=== PATIENT | male | born 1985 | race Caucasian/White ===

== ENCOUNTER 2020-05-14 18:13 | Emergency (ER) | payer MEDICAID, SELFPAY ==
[2020-05-14 18:38] VITALS: BP 120/75; PULSE 89; RESP 16; TEMP 37.2; O2SAT 97
[2020-05-14 20:23] VITALS: RESP 20; O2SAT 99; BMI 42.4
--- NOTE | 2020-05-14 20:23 | ED.SOB ---
HPI - SOB/Dyspnea General Chief Complaint: Upper Respiratory Symptoms Stated Complaint: covid symptoms Time Seen by Provider: 05/14/20 20:23 Source: patient Mode of arrival: ambulatory Limitations: no limitations History of Present Illness HPI Narrative: patient is asthmatic with COVID positive last week roughly day 10, now with increasing shortness of breath MD elicited complaint: shortness of breath and cough Pertinent past history: asthma Onset (ago): week(s) Timing: constant Severity: moderate Exacerbating factors: coughing Related Data Previous Rx's Medication Instructions Recorded azithromycin 250 mg PO DAILY 4 Days #4 tab 05/14/20 Allergies Allergy/AdvReac Type Severity Reaction Status Date / Time shellfish derived Allergy Severe ANAPHYLAXIS Unverified 01/09/20 18:12 ibuprofen [IBUPROFEN] Allergy Intermediate ANGIOEDEA, Unverified 01/09/20 18:12 HIVES [employer] Allergy Intermediate SWELLING Uncoded 01/09/20 18:12 DUST MITES Allergy Intermediate HIVES Uncoded 01/09/20 18:12 Shellfish Allergy Unknown anaphylaxis Uncoded 12/10/19 00:00 Review of Systems Constitutional: Constitutional: Reports no additional constitutional complaints Eyes: Eyes: Reports no additional eye complaints ENT: Denies dizziness Cardiovascular: Cardiovascular: Reports no additional cardiovascular complaints Respiratory: Respiratory: Reports as per HPI Gastrointestinal: Gastrointestinal: Reports no additional gastrointestinal complaints Musculoskeletal: Musculoskeletal: Reports no additional musculoskeletal complaints Integumentary/Breasts: Skin/Breast: Denies rash Neurologic: Reports system reviewed and no additional complaints, except as documented, Denies dizziness and Denies Sensory deficit (Neuro) Psychiatric: Psychiatric: Denies anxiety [facility] Social History Social History Advance Directives: No Advance Directives Information Provided: No Physical Exam Vital Signs: Vital Signs: Last Vital Signs Temp 99 F 05/14/20 18:38 Pulse 89 05/14/20 18:38 Resp 20 05/14/20 20:23 BP 120/75 05/14/20 18:38 Pulse Ox 99 05/14/20 20:23 Body Mass Index 42.4 Const: Other: Male coughing Nutritional Appearance: average body habitus Orientation/consciousness: oriented to person and patient oriented x3 Limitations: no limitations HENMT: Head: Yes normal to inspection Ears: external ears normal General nose exam: Normal external nose present Mouth: Normal oral and palatal mucosa present and oropharynx normal Throat: Yes posterior oropharynx normal Eyes: General: appearance normal, both eyes and all related structures Neck: Other: supple Neck: Yes normal visual inspection Chest: Chest palpation & inspection: normal inspection of the chest Resp: Auscultation: clear to auscultation bilaterally Cardio: Jugular venous distension: no JVD Rate: regular rate Rhythm: regular rhythm Heart sounds: S1 normal heart sound present and S2 normal heart sound present GI: Inspection: Yes normal to inspection Palpation (GI): Soft to palpation, nontender and No hepatosplenomegaly present Auscultation: normal bowel sounds : General: Yes no CVA tenderness Back/Spine/Pelvis: Back: no CVA tenderness Skin: General skin exam: no rashes or lesions noted Neuro: General: oriented to person and patient oriented x3 Cranial nerves: Yes CN's II-XII intact bilaterally Motor exam (neuro): 5/5 motor strength present throughout Sensory Exam: No Sensory deficit (Neuro) Extrem: General: Yes normal to inspection Psych: Appearance: grossly normal Course Course Course Narrative: question of slight infiltrate will start azithromax MDM - SOB/Dyspnea MDM Narrative Medical decision making narrative: COVID and pneumonia Discharge Plan Discharge Clinical Impression: COVID-19 Pneumonia Qualifiers: Pneumonia type: due to unspecified organism Laterality: left Lung location: lower lobe of lung Qualified Code(s): J18.9 - Pneumonia, unspecified organism Patient Disposition: Home, Self-Care Instructions: Community Acquired Pneumonia (ED), COVID-19 (Coronavirus Disease 2019) (ED) Prescriptions: New azithromycin 250 mg tablet 250 mg PO DAILY 4 Days Qty: 4 RF: 0
--- NOTE | 2020-05-14 20:24 | XR_ITS ---
EXAMINATION: XR CHEST CLINICAL INFORMATION: Covid COMPARISON: 11/02/2019 TECHNIQUE: Frontal view of the chest was obtained. FINDINGS: The lungs are well expanded. Faint patchy opacities of the lower lungs. No edema or effusion. No pneumothorax. The cardiomediastinal silhouette is within normal limits. No acute osseous abnormality. XR/XR chest 1V IMPRESSION: Faint patchy opacities of the lower lungs may be infectious in nature.
[2020-05-14] MEDS: Azithromycin 500 MG TABLET PO (21:37)
== END 2020-05-14 21:57 | disposition home or self-care (01) ==
PROVIDERS: Emergency Provider Emergency Medicine; PCP Internal Medicine Geriatric Medicine
DX: U07.1 COVID-19 (principal); J18.9 Pneumonia, unspecified organism; R06.02 Shortness of breath; R05 Cough; Z79.899 Other long term (current) drug therapy
CPT/HCPCS: 71045; 99283

== ENCOUNTER 2020-06-10 13:09 | Outpatient (REF) | payer MEDICAID, SELFPAY ==
--- NOTE | ~2020-06-10 | XR_ITS ---
EXAMINATION: XR CHEST CLINICAL INFORMATION: Cough COMPARISON: May 14, 2020 and November 02, 2019 TECHNIQUE: 2 views of the chest were obtained. FINDINGS: No significant abnormality is noted involving the heart, lungs, mediastinum, bony thorax or soft tissues. XR/XR chest 2V IMPRESSION: No acute disease.
[2020-06-10 13:41] LABS: MANUAL DIFF FLAG NO
[2020-06-10 13:44] LABS: Basophils Absolute Auto 0.1 X10*3/uL (0.0-0.2); Basophils Percent Auto 0.5 % (0-2); Eosinophils Absolute Auto 0.3 X10*3/uL (0.0-0.4); Eosinophils Percent Auto 2.4 % (0-4); Hematocrit 43.1 % (42-52); Imm Gran Abs Auto 0.07 X10*3/uL (0.00-0.03); Imm Gran Pct Auto 0.7 % (0.0-0.4); Lymphocytes Absolute Auto 2.2 X10*3/uL (1.2-4.9); Lymphocytes Percent Auto 20.8 % (20-40); Mean Corpuscular HGB Conc 32.5 g/dl (31.0-36.0); Mean Platelet Volume 10.2 fL (9.4-12.4); Monocytes Absolute Auto 0.9 X10*3/uL (0.1-1.2); Monocytes Percent Auto 8.3 % (2-11); Neutrophils Absolute Auto 7.2 X10*3/uL (2.0-8.3); Neutrophils Percent Auto 67.3 % (45-73); Platelet Count 361 X10*3/uL (160-400); Red Blood Count 5.19 X10*6/uL (4.60-5.80); Red Cell Distribution Width 13.8 % (11.0-16.0); White Blood Count 10.7 X10*3/uL (4.8-10.8)
[2020-06-10 14:11] LABS: Anion Gap 11 (12-20); Blood Urea Nitrogen 12 mg/dL (9-16); Calcium 9.2 mg/dL (8.4-10.2); Carbon Dioxide 29 mmol/L (22-29); Chloride 104 mmol/L (96-108); Estimated Glomerular Filt Rate > 60; Glucose Random 94 mg/dL (60-115); Potassium 4.6 mmol/L (3.3-5.1); Sodium 139 mmol/L (135-145)
== END 2020-06-10 13:10 | disposition home or self-care (01) ==
LOC: HO.LAB 13:09
PROVIDERS: PCP Internal Medicine Geriatric Medicine; Visit Provider Emergency Medicine
DX: R05 Cough (principal); R19.7 Diarrhea, unspecified
CPT/HCPCS: 36415; 71046; 80048; 82550; 85025

== ENCOUNTER 2020-10-25 12:46 | Emergency (ER) | payer MEDICAID, SELFPAY ==
--- NOTE | ~2020-10-25 | XR_ITS ---
EXAMINATION: XR CHEST CLINICAL INFORMATION: Cough COMPARISON: Chest x-ray June 10, 2020 TECHNIQUE: Frontal view of the chest was obtained. FINDINGS: Cardiac silhouette is normal in size. The lungs are adequately aerated. No lobar consolidation. No pleural effusion or pneumothorax. XR/XR chest 1V IMPRESSION: Stable examination demonstrating no acute pulmonary pathology.
[2020-10-25 12:48] VITALS: BP 114/55; PULSE 90; RESP 18; TEMP 37; O2SAT 98; BMI 45.2
[2020-10-25 13:20] LABS: COVID-19 Test Negative (Negative)
--- NOTE | 2020-10-25 14:34 | ED.URI ---
HPI - URI/Sore Throat General Chief Complaint: Upper Respiratory Symptoms Stated Complaint: SORE THROAT Time Seen by Provider: 10/25/20 13:56 History of Present Illness HPI Narrative: patient complains of cough runny nose and sore throat for past 2 days, cough is productive of sputum, no shortness of breath no fever no chills Related Data Previous Rx's Medication Instructions Recorded azithromycin 250 mg PO DAILY 4 Days #4 tab 05/14/20 Allergies Allergy/AdvReac Type Severity Reaction Status Date / Time shellfish derived Allergy Severe ANAPHYLAXIS Verified 05/14/20 21:33 ibuprofen [IBUPROFEN] Allergy Intermediate ANGIOEDEA, Verified 05/14/20 21:33 HIVES [employer] Allergy Intermediate SWELLING Uncoded 05/14/20 21:33 DUST MITES Allergy Intermediate HIVES Uncoded 05/14/20 21:33 Shellfish Allergy Unknown anaphylaxis Uncoded 05/14/20 21:33 Review of Systems Review of Systems: positive for cough runny nose and sore throat Negatives are no fever no chills no dizziness no weakness no fainting no feeling faint no headache no neck pain no chest pain no shortness of breath no abdominal pain no nausea vomiting or diarrhea no dysuria no skin rash Yes all other systems are reviewed and are negative PMFSH Past Medical History Source: nursing notes reviewed Medical History (Updated 10/25/20 @ 14:37 by DEDE Samaniego) Asthma Social History Social History Advance Directives: No Advance Directives Information Provided: No Physical Exam Vital Signs: Vital Signs: Last Vital Signs Temp 98.6 F 10/25/20 12:48 Pulse 90 10/25/20 12:48 Resp 18 10/25/20 12:48 BP 114/55 L 10/25/20 12:48 Pulse Ox 98 10/25/20 12:48 Body Mass Index 45.2 general appearance no acute distress The ears are clear with no redness no narrowing of canal, tympanic membranes normal The sinuses are nontender The pharynx is well hydrated with no redness swelling or exudate and voice is normal Neck is supple without lymphadenopathy The chest is clear to auscultation bilateral Heart no murmur Abdomen soft nontender Extremities no edema no calf tenderness no calf swelling Extremities full range of motion x4 Skin no rash Course Course Course Narrative: COVID test was negative, x-ray showed normal lungs no pneumonia and patient is well-appearing and is discharged MDM - URI/Sore Throat Lab Data Labs: Lab Results 10/25/20 Range/Units 12:57 COVID-19 (URIEL) Negative (Negative) COVID-19 Clin Com See Note Discharge Plan Discharge Clinical Impression: Acute viral syndrome Patient Disposition: Home, Self-Care Additional Instructions: chest x-ray and initial COVID test were negative Even with vaccination there is a small possibility that you have COVID as you have very typical COVID symptoms so best plan is to avoid gatherings a specially older people and assume you may have COVID Avoid crowds until symptoms are gone and get a repeat COVID test to confirm testing is negative Return to the ER any time any worse condition or any concerns Prescriptions: No Action azithromycin 250 mg tablet 250 mg PO DAILY 4 Days Qty: 4 RF: 0
== END 2020-10-25 14:44 | disposition home or self-care (01) ==
PROVIDERS: Physician Assistant Medical; Emergency Provider Emergency Medicine; PCP Internal Medicine Geriatric Medicine
DX: B34.9 Viral infection, unspecified (principal); Z20.822 Contact with and (suspected) exposure to COVID-19
CPT/HCPCS: 36415; 71045; 87635; 99283

== ENCOUNTER → 2021-05-18 14:47 | Outpatient (BNVA) | payer MEDICAID, SELFPAY | PROVIDERS: PCP Internal Medicine Geriatric Medicine; Visit Provider Urology | DX: N46.9 Male infertility, unspecified (principal) | CPT/HCPCS: 99202 ==

== ENCOUNTER 2021-06-08 16:01 | Outpatient (REF) | payer MEDICAID, SELFPAY ==
[2021-06-09 23:56] LABS: Follicle Stimulating Hormone 4.6 mIU/mL (1.6-8.0); Lutenizing Hormone 7.6 mIU/mL (1.5-9.3)
[2021-06-13 11:52] LABS: Testosterone, Total 330 ng/dL (250-1100)
== END 2021-06-08 16:02 | disposition home or self-care (01) ==
LOC: HO.LAB 16:01
PROVIDERS: PCP Internal Medicine Geriatric Medicine; Visit Provider Urology
DX: N46.9 Male infertility, unspecified (principal); E29.1 Testicular hypofunction
CPT/HCPCS: 36415; 83001; 83002; 84403

== ENCOUNTER → 2021-06-16 14:28 | Outpatient (BNVA) | payer MEDICAID, SELFPAY | PROVIDERS: PCP Internal Medicine Geriatric Medicine; Visit Provider Urology | DX: N46.9 Male infertility, unspecified (principal) | CPT/HCPCS: 99212 ==

== ENCOUNTER 2021-09-21 09:34 | Outpatient (REF) | payer MEDICAID, SELFPAY ==
--- NOTE | ~2021-09-21 | XR_ITS ---
EXAMINATION: XR ANKLE, RIGHT XR FOOT, RIGHT CLINICAL INFORMATION: Worsening pain. COMPARISON: None TECHNIQUE: AP, lateral, and mortise views of the right ankle. AP, lateral, and oblique views of the right foot. FINDINGS: Bony alignment and mineralization are normal. The ankle mortise is intact. No fracture, this location or right ankle joint effusion is seen. Boehler's angle is normal. There are small posterior plantar calcaneal spurs. No soft tissue swelling, gas or foreign body is seen. XR/XR foot RT min 3V IMPRESSION: 1. No fracture, dislocation or right ankle joint effusion is seen. 2. There are small posterior and plantar right calcaneal spurs.
--- NOTE | ~2021-09-21 | XR_ITS ---
EXAMINATION: XR ANKLE, RIGHT XR FOOT, RIGHT CLINICAL INFORMATION: Worsening pain. COMPARISON: None TECHNIQUE: AP, lateral, and mortise views of the right ankle. AP, lateral, and oblique views of the right foot. FINDINGS: Bony alignment and mineralization are normal. The ankle mortise is intact. No fracture, this location or right ankle joint effusion is seen. Boehler's angle is normal. There are small posterior plantar calcaneal spurs. No soft tissue swelling, gas or foreign body is seen. XR/XR ankle RT min 3V IMPRESSION: 1. No fracture, dislocation or right ankle joint effusion is seen. 2. There are small posterior and plantar right calcaneal spurs.
== END 2021-09-21 09:35 | disposition home or self-care (01) ==
LOC: HO.XRAY 09:34
PROVIDERS: PCP Internal Medicine Geriatric Medicine; Visit Provider Emergency Medicine
DX: M72.2 Plantar fascial fibromatosis (principal); M77.31 Calcaneal spur, right foot
CPT/HCPCS: 73610; 73630

== ENCOUNTER 2021-10-14 15:59 | Emergency (ER) | payer OTHER, MEDICAID, SELFPAY ==
--- NOTE | ~2021-10-14 | XR_ITS ---
EXAMINATION: XR ANKLE, RIGHT CLINICAL INFORMATION: Pain and swelling COMPARISON: None TECHNIQUE: AP, lateral, and mortise views of the right ankle. FINDINGS: There is moderate lateral malleolar soft tissue swelling. No visible acute fracture, dislocation or lytic process seen. The ankle mortise and subtalar joints are normal. There is a small calcaneal heel and moderate retrocalcaneal enthesophytes. XR/XR ankle RT min 3V IMPRESSION: Moderate lateral malleolar soft tissue swelling suggestive of ligamentous injury. No visible acute fracture or dislocation seen. Moderate retrocalcaneal and small calcaneal heel enthesophytes
[2021-10-14 16:36] VITALS: BP 133/103; PULSE 83; RESP 16; TEMP 36.3; O2SAT 97; BMI 44.5
[2021-10-14] MEDS: Acetaminophen 325 MG TABLET 975 MG PO (16:45)
--- NOTE | 2021-10-14 17:06 | ED.LOWEXIN ---
HPI - Extremity Injury (Lower) General Chief Complaint: Extremity Injury, Lower Stated Complaint: ankle sprain? fracture? Time Seen by Provider: 10/14/21 16:19 Source: patient Mode of arrival: wheelchair Limitations: no limitations History of Present Illness HPI Narrative: 35-year-old male presents for right ankle pain and swelling after an incident at work just prior to arrival. Patient was going down stairs, when 1 of the sisters broke, patient felt his right ankle snap. Patient did not fall, did not strike his head, no loss of consciousness. Patient has had a fracture to his right ankle 8 years ago, but it did not need surgery, he does not have hardware in this ankle. No numbness or tingling. Related Data Previous Rx's Medication Instructions Recorded azithromycin 250 mg tablet 250 mg PO DAILY 4 days #4 tabs 05/14/20 pentoxifylline 400 mg 400 mg PO BID 90 days #180 tabs 06/16/21 tablet,extended release acetaminophen 500 mg tablet 500 mg PO Q6H PRN pain #60 tabs 10/14/21 (Tylenol Extra Strength) oxycodone 5 mg capsule 5 mg PO Q6H PRN pain #20 caps 10/14/21 Allergies Allergy/AdvReac Type Severity Reaction Status Date / Time shellfish derived Allergy Severe ANAPHYLAXIS Verified 06/16/21 14:32 ibuprofen [IBUPROFEN] Allergy Intermediate ANGIOEDEA, Verified 06/16/21 14:32 HIVES [employer] Allergy Intermediate SWELLING Uncoded 06/16/21 14:32 DUST MITES Allergy Intermediate HIVES Uncoded 06/16/21 14:32 Shellfish Allergy Unknown anaphylaxis Uncoded 06/16/21 14:32 Review of Systems Constitutional: Constitutional: Denies body ache(s), Denies chills, Denies fatigue, Denies fever(s), Denies malaise and Denies weakness Eyes: Eyes: Denies diplopia Cardiovascular: Cardiovascular: Denies chest pain, Denies syncope, Denies leg edema, Denies lightheadedness, Denies Loss of Consciousness, Denies palpitations and Denies dyspnea Respiratory: Respiratory: Denies chest congestion, Denies cough and Denies dyspnea Gastrointestinal: Gastrointestinal: Denies abdominal pain, Denies hematochezia, Denies constipation, Denies diarrhea, Denies nausea and Denies vomiting Musculoskeletal: Musculoskeletal: Reports arthralgias, Reports joint swelling, Denies numbness and Denies tingling Neurologic: Denies confusion, Denies syncope, Denies numbness, Denies tingling and Denies weakness Psychiatric: Psychiatric: Denies anxiety, Denies confusion and Denies depression Endocrine: Endocrine: Denies fatigue and Denies palpitations PMFSH Past Medical History Medical History Asthma Social History Social History Advance Directives: No Advance Directives Information Provided: No Physical Exam Vital Signs: Vital Signs: Last Vital Signs Temp 97.4 F 10/14/21 16:36 Pulse 72 10/14/21 18:25 Resp 16 10/14/21 18:25 BP 126/65 10/14/21 18:25 Pulse Ox 97 10/14/21 18:25 O2 Del Method 10/14/21 18:25 BMI result Body Mass Index 44.5 Const: General: No confusion Nutritional Appearance: well nourished Orientation/consciousness: No confusion Limitations: no limitations Eyes: Conjunctivae: conjunctivae normal Pupils: Equal, round and reactive pupils present EOM: EOMs intact bilaterally Neck: Neck: Yes full ROM, Yes no lymphadenopathy and Yes supple Resp: Effort & Inspection: normal respiratory effort and able to speak in complete sentences Auscultation: clear to auscultation bilaterally, no crackles, no rales, no rhonchi and no wheezes Cardio: Rate: regular rate Rhythm: regular rhythm Heart sounds: S1 normal heart sound present and S2 normal heart sound present GI: Inspection: Yes normal to inspection Palpation (GI): Soft to palpation, nontender, no guarding and not rigid Percussion: Yes normal to percussion Auscultation: normal bowel sounds Skin: General skin exam: no rashes or lesions noted Neuro: General: No confusion Cranial nerves: Yes Equal, round and reactive pupils present Extrem: Right lower extremity: normal capillary refill and ankle Details: tenderness Location: of the lateral malleolus, swelling Details: laterally, edema Details: non-pitting and abnormal ROM Details: pain with active ROM Details: with plantar flexion, with dorsiflexion, with inversion and with eversion and pain with passive ROM Details: with plantar flexion, with dorsiflexion, with inversion and with eversion; no abrasions, no lacerations, no ecchymosis, no crepitus and achilles tendon exam normal Psych: Appearance: grossly normal Affect: normal affect Attitude: cooperative Thought process: Normal thought process present Course Course Course Narrative: On exam patient has right lower extremity intact pulses, sensation, DTRs. Patient has severe pain in right lateral ankle, cannot Marino or plantar flex ankle due to pain. X-ray shows no fracture, shows moderate soft tissue swelling. Will provide fiberglass splint, crutches, follow-up with Orthopedics. Counseled rest, ice, compression, elevation, out of work until seen and released by Orthopedics, prescribed exercising Tylenol and a small amount of oxycodone as patient has severe pain Reevaluation(s) Reevaluation #1: FINDINGS: There is moderate lateral malleolar soft tissue swelling. No visible acute fracture, dislocation or lytic process seen. The ankle mortise and subtalar joints are normal. There is a small calcaneal heel and moderate retrocalcaneal enthesophytes.? XR/XR ankle RT min 3V IMPRESSION: Moderate lateral malleolar soft tissue swelling suggestive of ligamentous injury. No visible acute fracture or dislocation seen. ? Moderate retrocalcaneal and small calcaneal heel enthesophytes Discharge Plan Discharge Clinical Impression: Ankle sprain and strain Patient Disposition: Home, Self-Care Instructions: Ankle Sprain (ED), Crutch Instructions (ED), R.I.C.E. Treatment (ED) Additional Instructions: I have prescribed Tylenol and oxycodone to your pharmacy for pain. I have referred you to orthopedics. If you do not hear from them by tomorrow afternoon, please call them if the following number [phone] You must stay out of work until you are seen and released back to work by Orthopedics. Please use the crutches, and stay off your right leg as much as possible. Please elevate your right leg, please leave the splint on until you are seen by Orthopedics Prescriptions: New acetaminophen [Tylenol Extra Strength] 500 mg tablet 500 mg PO Q6H PRN (Reason: pain) Qty: 60 0RF oxycodone 5 mg capsule 5 mg PO Q6H PRN (Reason: pain) Qty: 20 0RF Rx Instructions: Partial Fill upon patient request. No Action azithromycin 250 mg tablet 250 mg PO DAILY 4 Days Qty: 4 0RF pentoxifylline 400 mg tablet extended release 400 mg PO BID 90 Days Qty: 180 1RF Rx Instructions: administer with meals Referrals: Brody Zuluaga MD [Physician] - Stand Alone Forms: Work/School Release
[2021-10-14] MEDS: oxyCODONE HCl Immed Release 5 MG TABLET PO ×2 (17:22→18:32)
[2021-10-14 18:25] VITALS: BP 126/65; PULSE 72; RESP 16; O2SAT 97
== END 2021-10-14 19:33 | disposition home or self-care (01) ==
PROVIDERS: Emergency Provider Emergency Medicine Emergency Medical Services; PCP Internal Medicine Geriatric Medicine
DX: S93.401A Sprain of unspecified ligament of right ankle, initial encounter (principal); S96.911A Strain of unspecified muscle and tendon at ankle and foot level, right foot, initial encounter; W10.9XXA Fall (on) (from) unspecified stairs and steps, initial encounter; Y93.9 Activity, unspecified; Y92.9 Unspecified place or not applicable; Y99.9 Unspecified external cause status
CPT/HCPCS: 73610; 99283; 99284

== ENCOUNTER 2021-10-15 00:03 | Emergency (ER) | payer MEDICAID, SELFPAY ==
[2021-10-15 00:06] VITALS: BP 127/62; PULSE 82; RESP 15; TEMP 36.6; O2SAT 96; BMI 44.4
--- NOTE | 2021-10-15 00:22 | ED.EXTPRO ---
HPI - Extremity Problem General Chief complaint: Extremity Problem Stated complaint: R foot cast discomfort Time Seen by Provider: 10/15/21 00:14 Source: patient Mode of arrival: wheelchair Limitations: no limitations History of Present Illness HPI Narrative: patient comes to the emergency room complaining that he has a hot burning sensation in his heel. Patient was seen here a few hours ago, patient has a right ankle sprain, patient is in a splint. Patient states that he was sleeping, and woke up with burning sensation. Related Data Previous Rx's Medication Instructions Recorded azithromycin 250 mg tablet 250 mg PO DAILY 4 days #4 tabs 05/14/20 pentoxifylline 400 mg 400 mg PO BID 90 days #180 tabs 06/16/21 tablet,extended release acetaminophen 500 mg tablet 500 mg PO Q6H PRN pain #60 tabs 10/14/21 (Tylenol Extra Strength) oxycodone 5 mg capsule 5 mg PO Q6H PRN pain #20 caps 10/14/21 Allergies Allergy/AdvReac Type Severity Reaction Status Date / Time shellfish derived Allergy Severe ANAPHYLAXIS Verified 06/16/21 14:32 ibuprofen [IBUPROFEN] Allergy Intermediate ANGIOEDEA, Verified 06/16/21 14:32 HIVES [employer] Allergy Intermediate SWELLING Uncoded 06/16/21 14:32 DUST MITES Allergy Intermediate HIVES Uncoded 06/16/21 14:32 Shellfish Allergy Unknown anaphylaxis Uncoded 06/16/21 14:32 Review of Systems Review of Systems: Constitutional : No Weight loss, No Fever, No Chills, No Night Sweats, No Fatigue, No Malaise ENT/Mouth : No Hearing loss, No Ear Pain, No Nasal Congestion, No Sinus Pain, No Hoarseness, No sore throat, No Rhinorrhea, No Swallowing Difficulty Eyes: No Eye Pain, No Swelling, No Redness, No Foreign Body, No Discharge, No Vision Changes Cardiovascular : No Chest Pain, No SOB, No Dyspnea on Exertion, No Orthopnea, No Edema, No Palpitations Respiratory : No Cough, No Sputum, No Wheezing, No Smoke Exposure, No Dyspnea Gastrointestinal : No Nausea, No Vomiting, No Diarrhea, No Constipation, No abdominal Pain, No Hematochezia, No Melena Genitourinary : no irregular bleeding, No Dysuria, No Urinary Frequency, No Hematuria, No Urinary Incontinence, No Urgency, No Flank Pain, No Urinary Flow Changes, No Hesitancy Musculoskeletal : Complaining of new burn like sensation in his ankle on the right side, where a splint was placed earlier today Skin : No Skin Lesions, No rash Neuro : No Weakness, No Numbness, No Paresthesias, No Loss of Consciousness, No Dizziness, No Headache Psych : No Anxiety/Panic, No Depression, No SI/HI/AH/VH, No Social Issues, Heme/Lymph: No Bruising, No Bleeding,No Lymphadenopathy Endocrine : No Polyuria, No Polydipsia, No Temperature Intolerance [facility] Past Medical History Medical History Asthma Physical Exam Vital Signs: Vital Signs: Last Vital Signs Temp 97.9 F 10/15/21 00:06 Pulse 82 10/15/21 00:06 Resp 15 10/15/21 00:06 BP 127/62 10/15/21 00:06 Pulse Ox 96 10/15/21 00:06 O2 Del Method 10/15/21 00:06 BMI result Body Mass Index 44.4 Const: Other: Appearance: Alert. Oriented X3. No acute distress. Eyes: Pupils equal, round and reactive to light. ENT: Pharynx normal. Neck: Normal inspection. Neck supple. No lymph nodes noted. No crepitus CVS: Normal heart rate and rhythm. Pulses normal. Normal S1 and S2 Respiratory: No respiratory distress. Breath sounds normal. No Wheezing. No rales Abdomen: Soft and nontender. No rigidity. No distention. Skin: Skin warm and dry. Normal skin color. Normal skin turgor. Extremities: No lower extremity edema. patient's right ankle is in a splint, seems to be a bit tight, the toes are normal color Neuro: Oriented X 3. No motor deficit. No sensory deficit. Moving all extremities. No slurred speech. CN 2 through 12 grossly intact Psych: calm, cooperative, normal affect Course Course Course Narrative: patient splint seems to be a bit tight, will go ahead and redo it. Discharge Plan Discharge Clinical Impression: Ankle pain, right Patient Disposition: Home, Self-Care Instructions: Splint Care (ED) Additional Instructions: Please follow-up with your primary care physician tomorrow. If you have any worsening or new symptoms, please return to the emergency room or call 911 Prescriptions: No Action azithromycin 250 mg tablet 250 mg PO DAILY 4 Days Qty: 4 0RF acetaminophen [Tylenol Extra Strength] 500 mg tablet 500 mg PO Q6H PRN (Reason: pain) Qty: 60 0RF oxycodone 5 mg capsule 5 mg PO Q6H PRN (Reason: pain) Qty: 20 0RF Rx Instructions: Partial Fill upon patient request. pentoxifylline 400 mg tablet extended release 400 mg PO BID 90 Days Qty: 180 1RF Rx Instructions: administer with meals Referrals: Doe Gutierrez PA-C [Physician [employer]] - 2 days
--- NOTE | 2021-10-15 01:26 | PC.NURSE ---
Splint re applied to right lower leg-patient reports a new splint feels comfortable-right toes are warm, pink, brisk cap refill.
== END 2021-10-15 01:32 | disposition home or self-care (01) ==
PROVIDERS: Emergency Provider Emergency Medicine; PCP Internal Medicine Geriatric Medicine
DX: M25.571 Pain in right ankle and joints of right foot (principal); Z79.899 Other long term (current) drug therapy
CPT/HCPCS: 99284

== ENCOUNTER → 2021-11-04 13:50 | Outpatient (BNVA) | payer MEDICAID, SELFPAY | PROVIDERS: PCP Internal Medicine Geriatric Medicine; Visit Provider Physician Assistant | DX: S93.401A Sprain of unspecified ligament of right ankle, initial encounter (principal) | CPT/HCPCS: 99202 ==

== ENCOUNTER → 2021-12-22 08:32 | Outpatient (BNVA) | payer OTHER, MEDICAID, SELFPAY | PROVIDERS: PCP Internal Medicine Geriatric Medicine; Visit Provider Physician Assistant | DX: S93.401A Sprain of unspecified ligament of right ankle, initial encounter (principal) | CPT/HCPCS: 99212 ==

== ENCOUNTER 2022-03-07 14:00 | Outpatient (RCR) | payer OTHER, MEDICAID, SELFPAY ==
--- NOTE | 2021-12-08 15:48 | MHC.PT.EP ---
[facility] [place] [facility] [place] [facility] [place] Office [address] Viktoriya Thibodeaux [address] [phone] F: [phone] F: [phone] F: [phone] F: [phone] Physical Therapy Plan of Care Date of Evaluation: Date of Surgery: N/A Diagnosis: Sprain of unspecified ligament of right ankle, initial encounter Assessment: Pt is a pleasant 36yo M who presents to PT s/p R ankle sprain after falling on stairs on 10/14/21. He presents to PT with current impairments in pain, mild swelling, decreased ROM, decreased strength, decreased muscle length, decreased balance, and impaired gait. He is limited functionally by prolonged standing, prolonged walking, and stair navigation. He is an excellent candidate for skilled PT in order to address current impairments to facilitate return to PLOF. He will be seen 2x/week for 4 weeks and will be reassessed at that time. Frequency and Duration: The patient will be seen 2x/week for 4 weeks Short Term Goals: Pt will be I with HEP to promote self management of symptoms Pt will improve R DF by at least 5 degrees Penitentiary Goals: Pt will demonstrate full ROM and strength throughout R ankle to assist with standing functional tasks Pt will ascend/descend 1 flight of stairs with reciprocal pattern with minimal to no pain or compensation Pt will demonstrate improvements in function as evidenced by statistically significant improvement in LEFI outcome measure Treatment Plan: Modalities to reduce pain, spasms and effusion. Manual therapy to restore motion and function. Therapeutic exercise to improve strength and flexibility. Neuromuscular re-education for posture and balance. Therapeutic activities to return to functional activities of daily living. Electronically signed by: Nancy Fagan, PT, DPT Please sign and return to therapist. Thank you for your referral.
--- NOTE | 2022-03-21 14:02 | MHC.PT.DC ---
[facility] [place] Office [place] Office [place] Office [address] Viktoriya Thibodeaux [address] [phone] F: [phone] F: [phone] F: [phone] F: [phone] Physical Therapy Discharge Report Diagnosis: Sprain of unspecified ligament of right ankle, initial encounter Date of Surgery: N/A Date of Evaluation: 12/08/21 Date of Discharge: 03/21/22 Treatments to Date: 17 Cancellations to Date: 7 No Shows to Date: 3 Discharge Status: Discharge Summary: Pt was seen for PT from 12/08/21-03/07/22. His last attended appointment was 03/07/22. He called our PT office on 03/14/22 asking to speak to his PT. I returned his phone call on 03/14/22 at ~1:35pm and pt reports he followed up with orthopedics to discuss the results of his MRI. He reports he has 3 torn ligaments and is getting surgery and therefore needs to D/C from PT. Pt is getting D/C from skilled PT at this time as he is getting surgery. Pt reports no further questions or concerns for PT at time of phone call. Pt current level of function unknown at this time. Electronically signed by: Nancy Fagan, PT, DPT Please sign and return to therapist. Thank you for your referral.
== END 2022-03-21 14:02 | disposition home or self-care (01) ==
LOC: HO.PT 14:00
PROVIDERS: PCP Internal Medicine Geriatric Medicine; Visit Provider Physician Assistant
DX: S93.401A Sprain of unspecified ligament of right ankle, initial encounter (principal)
CPT/HCPCS: 97035; 97110; 97112; 97140; 97162

== ENCOUNTER 2022-04-15 21:24 | Emergency (ER) | payer OTHER, MEDICAID, SELFPAY ==
[2022-04-15 21:31] VITALS: BP 129/72; PULSE 91; RESP 16; TEMP 36.7; O2SAT 96; BMI 45.9
--- NOTE | 2022-04-15 23:30 | ED.ALLEREA ---
HPI - Allergic Reaction General Chief complaint: Allergic Reaction Stated complaint: allergic reaction, hives Time Seen by Provider: 04/15/22 23:30 Source: patient Mode of arrival: ambulatory Limitations: no limitations History of Present Illness HPI narrative: Patient ending of rash after being on Lovenox for 9 days after right foot surgery patient does not want to take Lovenox and thinks is allergic to Lovenox no shortness of breath no lip tongue swelling rash is mostly lower extremities Related Data Previous Rx's Medication Instructions Recorded pentoxifylline 400 mg 400 mg PO BID 90 days #180 tabs 06/16/21 tablet,extended release naproxen 500 mg tablet 500 mg PO BID 30 days #60 tabs 11/04/21 acetaminophen 500 mg tablet 500 mg PO Q6H PRN pain 30 days #60 12/01/21 (Tylenol Extra Strength) tabs diclofenac sodium 1 % topical gel 4 g topical QID 30 days #100 grams 12/22/21 apixaban 2.5 mg tablet (Eliquis) 2.5 mg PO BID #28 tabs 04/15/22 Allergies Allergy/AdvReac Type Severity Reaction Status Date / Time shellfish derived Allergy Severe ANAPHYLAXIS Verified 12/22/21 08:43 ibuprofen [IBUPROFEN] Allergy Intermediate ANGIOEDEA, Verified 12/22/21 08:43 HIVES DAIRY PRODUCTS Allergy Intermediate SWELLING Uncoded 12/22/21 08:43 DUST MITES Allergy Intermediate HIVES Uncoded 12/22/21 08:43 Shellfish Allergy Unknown anaphylaxis Uncoded 12/22/21 08:43 Review of Systems Review of Systems: Yes all other systems are reviewed and are negative [facility] Past Medical History Medical History Asthma Social History Social History Advance Directives: No Advance Directives Information Provided: No 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 Oriented X3. No acute distress. ENT: Pharynx normal. Oral Mucosa moist tongue and lips normal Neck: Normal inspection. Neck supple. CVS: Normal heart rate and rhythm. Pulses normal. Respiratory: No respiratory distress. Equal air entry bilateral, no wheezing/rales/rhonchi Abdomen: Soft and nontender. Bowel sounds are present, Skin: Skin warm and dry. Normal skin color. Normal skin turgor. Small erythematous rash? Contact dermatitis Extremities: No lower extremity edema. No calf tenderness Neuro: Oriented X 3. Medications Administered Discontinued Medications Generic Name Dose Route Start Last Admin Trade Name Freq PRN Reason Stop Dose Admin Apixaban 2.5 mg 04/15/22 23:45 04/16/22 00:04 Apixaban 2.5 Mg Tablet PO 04/15/22 23:46 2.5 mg ONCE ONE Administration Medical Decision Making Medical Decision Making MDM Narrative: Patient insisting in stopping Lovenox for the rash which had only thing is from Lovenox but will stop Lovenox start him on Eliquis 2.5 twice daily for DVT prophylaxis postop Discharge Plan Discharge Clinical Impression: Allergic reaction Patient Disposition: Home, Self-Care Instructions: General Allergic Reaction (ED) Additional Instructions: Stop Lovenox Start taking Eliquis 2.5 mg twice daily for 2 weeks Benadryl 25-50 mg every 6 hours for allergic reaction Prescriptions: New Eliquis 2.5 mg tablet 2.5 mg PO BID Qty: 28 0RF No Action acetaminophen [Tylenol Extra Strength] 500 mg tablet 500 mg PO Q6H PRN (Reason: pain) 30 Days Qty: 60 3RF pentoxifylline 400 mg tablet extended release 400 mg PO BID 90 Days Qty: 180 1RF Rx Instructions: administer with meals naproxen 500 mg tablet 500 mg PO BID 30 Days Qty: 60 3RF diclofenac sodium 1 % gel 4 g topical QID 30 Days Qty: 100 6RF Rx Instructions: apply 4grams to affected area four times a day as needed Interventions: ED Discharge Assessment Last Done: 04/16/22 00:42 Discharge Date/Time: 04/16/22 00:43
== END 2022-04-16 00:43 | disposition home or self-care (01) ==
PROVIDERS: Emergency Provider Internal Medicine; PCP Internal Medicine Geriatric Medicine
DX: L50.0 Allergic urticaria (principal); Z79.899 Other long term (current) drug therapy
CPT/HCPCS: 99282; 99283

== ENCOUNTER 2022-07-18 14:00 | Outpatient (RCR) | payer OTHER, MEDICAID, SELFPAY | END 2022-08-19 14:40 | disposition home or self-care (01) | LOC: HO.PT 14:00 | PROVIDERS: PCP Internal Medicine Geriatric Medicine; Visit Provider Orthopaedic Surgery Foot and Ankle Surgery | DX: S93.401A Sprain of unspecified ligament of right ankle, initial encounter (principal); Z98.890 Other specified postprocedural states | CPT/HCPCS: 97110; 97112; 97140; 97162; 97530 ==

== ENCOUNTER → 2023-01-11 14:59 | Outpatient (BNVA) | payer OTHER, MEDICAID, SELFPAY | PROVIDERS: PCP Internal Medicine Geriatric Medicine; Visit Provider Physician Assistant Surgical ==

== ENCOUNTER 2023-01-16 08:04 | Outpatient (AMB) | payer MEDICAID, SELFPAY ==
--- NOTE | 2023-01-16 08:17 | MHC.OFFVISWM ---
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 BMI 45.7 Allergies shellfish derived Allergy (Severe, Verified 01/16/23 08:18) ANAPHYLAXIS ibuprofen [IBUPROFEN] Allergy (Intermediate, Verified 01/16/23 08:18) ANGIOEDEA, HIVES DAIRY PRODUCTS Allergy (Intermediate, Uncoded 01/16/23 08:18) SWELLING DUST MITES Allergy (Intermediate, Uncoded 01/16/23 08:18) HIVES Shellfish Allergy (Unknown, Uncoded 01/16/23 08:18) anaphylaxis Medication List - Last Reconciled 01/16/23 by Dewey Gomes MD acetaminophen (Tylenol Extra Strength) 500 mg PO Q6H PRN 30 days HPI TV 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 BMI 45.7 HPI Details Start time: 8.22am, End time: 9.07am ?I spent 40 minutes speaking with the patient on the phone plus an additional 5 minutes reviewing and updating records for a total of 45 minutes HPI Comments History of Present Illness Details Previous weight loss efforts: Gym, keto diet, high protein/low carb Wakes up: 6am, Sleeps: 8pm Breakfast: 6.15am (eggs with toast) Lunch: 1pm (turkey wraps or burgers, chicken) Dinner:6pm (turkey or chicken) Snacks: 10am: (fruits), 2.30pm (fruits) Exercise: none (treadmill and elliptical at home) Fluids: Coffee 1cup/day (splenda, milk), tea: none, soda: none, juice: none, ETOH: none PFSH Medical History (Updated 01/16/23 @ 08:22 by Dewey Gomes MD) Migraines Morbid obesity Asthma Surgical History (Updated 01/11/23 @ 15:27 by ROBERTO Goff) Sprain of ligament of right ankle Family History (Updated 01/11/23 @ 15:30 by ROBERTO Goff) Mother High blood pressure Arthritis Hypothyroid Colon polyp Migraine Father No problems noted. 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 Plan for lap sleeve gastrectomy. If diaphragmatic or ventral hernias are present at time of surgery, these will be repaired laparoscopically as well. Risks and complications were discussed in detail including possible conversion to an open procedure, anastomotic leak, bleeding requiring transfusion, small bowel obstruction, , DVT and pulmonary embolism, cardiac, or pulmonary complications, as terminal superintendent complications such as anastomotic ulcer, insufficient weight loss and vitamin deficiencies. I emphasized the importance of close follow-up, adherence to instructions and good communication. 2. Nutritional counseling. Start with 2 Celebrate REBUILD protein (buy at [facility] [employer]) shakes (TWO scoops EACH in 8oz low fat unsweetened almond milk each) at 7am-9am and 10am-12pm, 2 Celebrate protein bars (buy at [facility] [employer]) at 1pm-3pm and 4pm-6m, dinner at 7pm (12 forks of protein and 12 forks of salad/vegetables). Meal to include lean meat (beef, fish, pork, turkey, chicken), or sinhala yogurt, or egg whites, or beans with a salad with olive oil and fruits (berries, pears, apples, kiwi). Avoid salt, breads, potatoes, rice, pasta, desserts. 3. Each shake would be drunk slowly, like coffee in a period of 2 hours. 4. Cut each bar in 4 pieces and eat each piece in 30min ?to make each bar last 2 hours. 5. I emphasized the importance of measuring accurately the food portion and measure it when serving the food in plate 6. The meal portions include 12 full-size forks of meat and 12 full-size forks of salad. You always eat the meat portion but you can replace up to 6 forks for salad/vegetables with rice, potatoes or pasta, or a fruit ?if you like. The less you do it the better weight loss will be. 7. One full-size fork is what it can be scooped on the fork without falling aside and not what can be bit with the fork. Use regular forks like those you find in a typical restaurant. 8.? Please send me weight measurements as soon as possible and then once a week. Always include your diet and exercise plan. 9. Start Elliptical with an incline of 2.0 and resistance of 4.0. Increase incline by 1 every 3 min to a max resistance of 9.0, and repeat cycles for 300 calories. 10. Alternatively start treadmill with an incline of 4.0 and speed of 3.0. Increase incline by 1 every 3 min to a max incline of 10.0, stay 3min at 10.0 and then return to 4.0 and repeat same steps until calorie goal is met. Goal is to burn 2000 calories per week on exercise, which means either 300 calories daily, or 400 calories 5 days per week, or 500 calories 4 days per week, or 650 calories 3 days per week. 11.?Goal is to lose at least 1.5-2lbs per week 12. Goal to lose 10% of your weight before surgery, which is about 30lbs. Ultimate weight goal: 270lbs before surgery 13. Please follow the diet plan exactly without any change. If you don't like something about the plan or you feel hungry you need to communicate with me so I can help you revise the plan. You should not change the plan yourself. (2) Migraines: Code(s): G43.909 - Migraine, unspecified, not intractable, without status migrainosus (3) Male infertility: Code(s): N46.9 - Male infertility, unspecified Orders: Orders Lipid Panel Today E66.01 - Morbid (severe) obesity due to excess calories, G43.909 - Migraine, unspecified, not intractable, without status migrainosus, N46.9 - Male infertility, unspecified Complete Blood Count Auto Diff Today E66.01 - Morbid (severe) obesity due to excess calories, G43.909 - Migraine, unspecified, not intractable, without status migrainosus, N46.9 - Male infertility, unspecified Vitamin B1 Today E66.01 - Morbid (severe) obesity due to excess calories, G43.909 - Migraine, unspecified, not intractable, without status migrainosus, N46.9 - Male infertility, unspecified PTHI Today E66.01 - Morbid (severe) obesity due to excess calories, G43.909 - Migraine, unspecified, not intractable, without status migrainosus, N46.9 - Male infertility, unspecified Vitamin D 25-OH Total Today E66.01 - Morbid (severe) obesity due to excess calories, G43.909 - Migraine, unspecified, not intractable, without status migrainosus, N46.9 - Male infertility, unspecified Hemoglobin A1c Today E66.01 - Morbid (severe) obesity due to excess calories, G43.909 - Migraine, unspecified, not intractable, without status migrainosus, N46.9 - Male infertility, unspecified XR chest 2V Today E66.01 - Morbid (severe) obesity due to excess calories, G43.909 - Migraine, unspecified, not intractable, without status migrainosus, N46.9 - Male infertility, unspecified ECG 12 lead EKG Today E66.01 - Morbid (severe) obesity due to excess calories, G43.909 - Migraine, unspecified, not intractable, without status migrainosus, N46.9 - Male infertility, unspecified FL upper GI w air Today E66.01 - Morbid (severe) obesity due to excess calories, G43.909 - Migraine, unspecified, not intractable, without status migrainosus, N46.9 - Male infertility, unspecified Insulin Today E66.01 - Morbid (severe) obesity due to excess calories, G43.909 - Migraine, unspecified, not intractable, without status migrainosus, N46.9 - Male infertility, unspecified IRON PROFILE Today E66.01 - Morbid (severe) obesity due to excess calories, G43.909 - Migraine, unspecified, not intractable, without status migrainosus, N46.9 - Male infertility, unspecified Vitamin B12 and Folate Today E66.01 - Morbid (severe) obesity due to excess calories, G43.909 - Migraine, unspecified, not intractable, without status migrainosus, N46.9 - Male infertility, unspecified Zinc Today E66.01 - Morbid (severe) obesity due to excess calories, G43.909 - Migraine, unspecified, not intractable, without status migrainosus, N46.9 - Male infertility, unspecified Comprehensive Met. Panel Today E66.01 - Morbid (severe) obesity due to excess calories, G43.909 - Migraine, unspecified, not intractable, without status migrainosus, N46.9 - Male infertility, unspecified Vitamin A Today E66.01 - Morbid (severe) obesity due to excess calories, G43.909 - Migraine, unspecified, not intractable, without status migrainosus, N46.9 - Male infertility, unspecified C Reactive Protein Today E66.01 - Morbid (severe) obesity due to excess calories, G43.909 - Migraine, unspecified, not intractable, without status migrainosus, N46.9 - Male infertility, unspecified Ferritin Today E66.01 - Morbid (severe) obesity due to excess calories, G43.909 - Migraine, unspecified, not intractable, without status migrainosus, N46.9 - Male infertility, unspecified TSH reflex Free T4 Today E66.01 - Morbid (severe) obesity due to excess calories, G43.909 - Migraine, unspecified, not intractable, without status migrainosus, N46.9 - Male infertility, unspecified H Pylori Breath Test Today E66.01 - Morbid (severe) obesity due to excess calories, G43.909 - Migraine, unspecified, not intractable, without status migrainosus, N46.9 - Male infertility, unspecified US abdomen comp w elastography Today E66.01 - Morbid (severe) obesity due to excess calories, G43.909 - Migraine, unspecified, not intractable, without status migrainosus, N46.9 - Male infertility, unspecified Referrals Behavioral Health Referral E66.01 - Morbid (severe) obesity due to excess calories, G43.909 - Migraine, unspecified, not intractable, without status migrainosus, N46.9 - Male infertility, unspecified Nutrition/Dietitian Referral E66.01 - Morbid (severe) obesity due to excess calories, G43.909 - Migraine, unspecified, not intractable, without status migrainosus, N46.9 - Male infertility, unspecified Telehealth Telehealth Location of provider rendering services: practice address Location of patient: address on file Patient Identification confirmed using: Name, : Yes Telehealth method: voice only Patient verbally consented to treatment: Yes Patient verbally consented to billing insurance company: Yes Patient informed of any privacy concerns related to visit: Yes Minutes spent on Phone/Video with Pt.: 45 Coding Level of Care Code Tele New Pt Level 4 (27267) Diagnoses Morbid obesity E66.01 Migraines G43.909 Male infertility N46.9 Time Spent (min) 45
[2023-01-16 08:26] VITALS: BMI 45.7
== END 2023-01-16 09:08 | disposition home or self-care (01) ==
LOC: HO.HBS 08:05
PROVIDERS: PCP Internal Medicine Geriatric Medicine; Visit Provider Surgery
DX: E66.01 Morbid (severe) obesity due to excess calories (principal); Z68.42 Body mass index [BMI] 45.0-49.9, adult; G43.909 Migraine, unspecified, not intractable, without status migrainosus; N46.9 Male infertility, unspecified
CPT/HCPCS: 99204

== ENCOUNTER → 2023-01-16 08:04 | Outpatient (BNVA) | payer MEDICAID, SELFPAY | PROVIDERS: PCP Internal Medicine Geriatric Medicine; Visit Provider Surgery ==

== ENCOUNTER 2023-01-26 08:07 | Outpatient (REF) | payer MEDICAID, SELFPAY ==
--- NOTE | 2023-01-26 08:21 | ECG_ITS ---
Test Reason : mor obesity Blood Pressure : / mmHG Vent. Rate : 072 BPM Atrial Rate : 072 BPM P-R Int : 156 ms QRS Dur : 088 ms QT Int : 404 ms P-R-T Axes : -02 013 023 degrees QTc Int : 442 ms Poor data quality, interpretation may be adversely affected Normal sinus rhythm with sinus arrhythmia Normal ECG When compared with ECG of 02-NOV-2019 12:29, No significant change was found Referred By: Dewey Gomes Electronically Signed By:DRU SALMERON Referred By: Dewey Gomes Electronically Signed By:
[2023-01-26 08:43] LABS: MANUAL DIFF FLAG NO
[2023-01-26 09:02] LABS: Basophils Absolute Auto 0.1 X10*3/uL (0.0-0.2); Basophils Percent Auto 0.4 % (0-2); Eosinophils Absolute Auto 0.3 X10*3/uL (0.0-0.4); Eosinophils Percent Auto 2.5 % (0-4); Hematocrit 43.8 % (42.0-52.0); Imm Gran Abs Auto 0.06 X10*3/uL (0.00-0.03); Imm Gran Pct Auto 0.5 % (0.0-0.4); Lymphocytes Absolute Auto 1.9 X10*3/uL (1.2-4.9); Lymphocytes Percent Auto 16.2 % (20-40); Mean Corpuscular Volume 84.6 fL (80.0-98.0); Mean Platelet Volume 10.3 fL (9.4-12.4); Monocytes Absolute Auto 0.9 X10*3/uL (0.1-1.2); Neutrophils Absolute Auto 8.3 x10*3/uL (2.0-8.3); Neutrophils Percent Auto 72.4 % (45-73); Platelet Count 345 X10*3/uL (160-400); Red Blood Count 5.18 X10*6/uL (4.60-5.80); Red Cell Distribution Width 14.4 % (11.0-16.0); White Blood Count 11.4 X10*3/uL (4.8-10.8)
[2023-01-26 09:40] LABS: Alanine Aminotransferase 16 U/L (0-40); Albumin Level 3.8 g/dL (3.5-5.0); Alkaline Phosphatase 108 U/L (39-117); Anion Gap 12 (12-20); Aspartate Amino Transferase 14 U/L (5-37); Bilirubin Total 0.4 mg/dL (0.0-1.0); Blood Urea Nitrogen 13 mg/dL (9-16); C Reactive Protein 1.27 mg/dL (< or = 0.50); Calcium 8.9 mg/dL (8.4-10.2); Carbon Dioxide 23 mmol/L (22-29); Chloride 108 mmol/L (96-108); Cholesterol 179 mg/dL (<200); Estimated Glomerular Filt Rate > 60; Glucose Random 104 mg/dL (60-115); HDL Cholesterol 35 mg/dL (>40); Iron 46 mcg/dL (45-160); LDL Cholesterol Calculated 118 mg/dL (<100); Percent Iron Saturation 16 % (15-50); Potassium 3.9 mmol/L (3.3-5.1); Sodium 139 mmol/L (135-145); Total Iron Binding Capacity 283 mcg/dL (228-428); Total Protein 6.9 g/dL (6.5-8.0); Triglycerides 133 mg/dL (<150); Unsaturated Iron Binding 237 ug/dL
[2023-01-26 09:52] LABS: Ferritin 81 ng/mL (20-250); Insulin 15 uU/mL (2-29); TSH reflex Free T4 0.81 uIU/mL (0.32-4.0); Vitamin D 25-OH Total 29.3 ng/mL (>30)
[2023-01-26 09:57] LABS: Estimated Average Glucose 103 mg/dL; Hemoglobin A1c % 5.2 % (<6.0)
[2023-01-31 12:53] LABS: Zinc 68 mcg/dL (60-130)
[2023-01-31 15:34] LABS: Vitamin B1 11 nmol/L (8-30)
[2023-02-01 12:53] LABS: Vitamin A 41 mcg/dL (38-98)
== END 2023-01-26 08:08 | disposition home or self-care (01) ==
LOC: HO.XRAY 08:07
PROVIDERS: Absent Provider Surgery; PCP Internal Medicine Geriatric Medicine; Visit Provider Physician Assistant Surgical
DX: E66.01 Morbid (severe) obesity due to excess calories (principal); N46.9 Male infertility, unspecified; G43.909 Migraine, unspecified, not intractable, without status migrainosus
CPT/HCPCS: 36415; 71046; 80053; 80061; 82306; 82607; 82728; 82746; 83013; 83036; 83525; 83540; 83970; 84425; 84443; 84590; 84630; 85025; 86140; 93005; 99211

== ENCOUNTER 2023-02-10 07:46 | Outpatient (AMB) | payer MEDICAID, SELFPAY ==
--- NOTE | 2023-02-10 08:44 | A.OFFVIS_ITS ---
Intake VS Expanded 02/10/23 08:51 Height 5 ft 8 in Weight 288 lb 4 oz BMI 43.8 Body Fat % 42.1 Body Fat Mass 121.4 Fat Free Mass 166.9 Visceral Fat Rating 18 Body Water % 41.3 Body Water Mass 119.1 Basal Metabolic Rate/Score 2,389 Intake Visit Reasons: TV Follow Up SWL - Allergies shellfish derived Allergy (Severe, Verified 01/16/23 08:18) ANAPHYLAXIS ibuprofen [IBUPROFEN] Allergy (Intermediate, Verified 01/16/23 08:18) ANGIOEDEA, HIVES DAIRY PRODUCTS Allergy (Intermediate, Uncoded 01/16/23 08:18) SWELLING DUST MITES Allergy (Intermediate, Uncoded 01/16/23 08:18) HIVES Shellfish Allergy (Unknown, Uncoded 01/16/23 08:18) anaphylaxis HPI TV Follow Up SWL - HPI Details Start time: 8.38am, End time: 8.58am ?I spent 15 minutes speaking with the patient on the phone plus an additional 5 minutes reviewing and updating records for a total of 20 minutes HPI Comments History of Present Illness Details Overall weight loss: 12.2lbs, or 4.06% TBWL Is doing 2 Celebrate Rebuild protein shakes (2 scoops each in almond milk), 2 Zone Perfect protein bars and one meal (12 forks of protein and 12 forks of salad or vegetables) Exercise: doing Gym x3/week doing the treadmill for 300 calories and the elliptical for 300 calories PFSH Medical History (Updated 01/16/23 @ 08:22 by Dewey Gomes MD) Migraines Morbid obesity Asthma Surgical History (Updated 01/11/23 @ 15:27 by ROBERTO Goff) Sprain of ligament of right ankle Family History (Updated 01/11/23 @ 15:30 by ROBERTO Goff) Mother High blood pressure Arthritis Hypothyroid Colon polyp Migraine Father No problems noted. 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 Continue same nutritional plan of 2 Celebrate Rebuild protein shakes (2 scoops each in almond milk), 2 Zone Perfect protein bars and one meal (12 forks of protein and 12 forks of salad or vegetables) 2. Exercise: continue Gym x3/week but increase calories you burn to treadmill to 350 calories and to the elliptical to 350 calories 3. Continue to send me weight measurements weekly on Mondays Telehealth Telehealth Location of provider rendering services: practice address Location of patient: address on file Patient Identification confirmed using: Name, : Yes Telehealth method: voice only Patient verbally consented to treatment: Yes Patient verbally consented to billing insurance company: Yes Patient informed of any privacy concerns related to visit: Yes Minutes spent on Phone/Video with Pt.: 20 Coding Level of Care Code Tele Est Pt Level 3 (44049) Diagnoses Morbid obesity E66.01 Time Spent (min) 20
[2023-02-10 08:51] VITALS: BMI 43.8
== END 2023-02-10 08:59 | disposition home or self-care (01) ==
LOC: HO.HBS 07:46
PROVIDERS: PCP Internal Medicine Geriatric Medicine; Visit Provider Surgery
DX: E66.01 Morbid (severe) obesity due to excess calories (principal); Z68.41 Body mass index [BMI] 40.0-44.9, adult
CPT/HCPCS: 99213

== ENCOUNTER → 2023-02-10 07:46 | Outpatient (BNVA) | payer MEDICAID, SELFPAY | PROVIDERS: PCP Internal Medicine Geriatric Medicine; Visit Provider Surgery ==

== ENCOUNTER 2023-02-16 08:36 | Outpatient (REF) | payer MEDICAID, SELFPAY ==
--- NOTE | ~2023-02-16 | US_ITS ---
EXAMINATION: US COMPLETE ABDOMEN WITH LIVER ELASTOGRAPHY CLINICAL INFORMATION: Morbid obesity. COMPARISON: None available. TECHNIQUE: Real-time imaging of the abdominal viscera. Noninvasive ultrasound liver fibrosis assessment is performed using Estefani ElastPQ point quantification shear wave elastography (2D-SWE) with a C5-2 MHz transducer. Multiple elastography samples are obtained. FINDINGS: PANCREAS: Limited. The visualized pancreatic head and body are normal in appearance. The remainder of the pancreas is obscured from visualization by the overlying bowel gas. ABDOMINAL AORTA: The proximal, middle, and distal aortic segments are normal in caliber. INFERIOR VENA CAVA: Visualized portions are normal. LIVER: Normal. The liver demonstrates normal size, contour and echogenicity. No focal lesion or intrahepatic biliary duct dilatation. The right lobe measures 16.5 cm in length. The left lobe measures 9.1 cm in length. Portal flow is towards the liver (hepatopetal). Shear wave liver elastography median stiffness is 1.34 m/s (reference: normal median stiffness is 1.3 m/s or less). IQR/median stiffness to assess sampling precision is 0.26 (reference: good quality data set is IQR/median stiffness of 0.15 or less). GALLBLADDER: Normal. The gallbladder is physiologically distended without evidence of stones, sludge, polyps, wall thickening or pericholecystic fluid. COMMON BILE DUCT: Normal in caliber measuring 0.3 cm in diameter. RIGHT KIDNEY: Normal. No hydronephrosis. No renal calculi or focal parenchymal lesions. The kidney measures 10.7 cm in maximum dimension. LEFT KIDNEY: Normal. No hydronephrosis. No renal calculi or focal parenchymal lesions. The kidney measures 12.2 cm in maximum dimension. SPLEEN: Normal. The spleen measures 10.7 cm in maximum dimension. FREE FLUID: None. US/US abdomen comp w elastography IMPRESSION: 1. There is generalized increase in hepatic echotexture, consistent with fatty infiltration or hepatocellular disease. Please correlate clinically. No focal hepatic mass or intrahepatic biliary dilatation is seen. 2. Liver elastography: Although measurements appear to rule out compensated advanced chronic liver disease, there is statistical variability of the sampling which decreases accuracy. 3. Technically limited ultrasound examination, in particular of the pancreas and abdominal great vessels. REFERENCE: Society of Radiologists in Ultrasound Liver Stiffness Thresholds (2020): LIVER STIFFNESS THRESHOLDS: *Liver Stiffness equal or less than 1.3 m/s: High probability of being normal. *Liver Stiffness less than 1.7 m/s: In the absence of other known clinical signs, rules out compensated advanced chronic liver disease. *Liver Stiffness 1.7-2.1 m/s: Suggestive of compensated advanced chronic liver disease but need further test for confirmation. *Liver Stiffness over 2.1 m/s: Rules in compensated advanced chronic liver disease. *Liver Stiffness over 2.4 m/s: Suggestive of clinically significant portal hypertension. QUALITY OF DATA SET: *IQR/Median value equal or less than 0.15 implies a quality data set. *IQR/Median value over 0.15 implies a poor quality data set. SIGNIFICANT CHANGE FROM PRIOR EXAM: Significant change if liver stiffness measurement is 10% or greater from prior exam. OTHER CONSIDERATIONS: The stage of liver fibrosis may be overestimated in the setting of acute hepatitis, liver inflammation, elevated liver function tests, hepatic vascular congestion, obstructive cholestasis, non-fasting state, and infiltrative diseases such as amyloidosis and lymphoma. In some patients with NAFLD, the liver stiffness thresholds for compensated advanced chronic liver disease may be lower. In causes other than viral hepatitis and NAFLD, liver stiffness thresholds are not well established.
== END 2023-02-16 08:37 | disposition home or self-care (01) ==
LOC: HO.US 08:36
PROVIDERS: PCP Internal Medicine Geriatric Medicine; Visit Provider Surgery
DX: E66.01 Morbid (severe) obesity due to excess calories (principal); N46.9 Male infertility, unspecified; G43.909 Migraine, unspecified, not intractable, without status migrainosus
CPT/HCPCS: 76705; 76981; 90791

== ENCOUNTER 2023-02-16 13:29 | Outpatient (AMB) | payer MEDICAID, SELFPAY ==
--- NOTE | 2023-02-16 13:05 | MHC.WMTHER ---
Intake Intake Visit Reasons: VIDEO BH Intake Allergies shellfish derived Allergy (Severe, Verified 01/16/23 08:18) ANAPHYLAXIS ibuprofen [IBUPROFEN] Allergy (Intermediate, Verified 01/16/23 08:18) ANGIOEDEA, HIVES DAIRY PRODUCTS Allergy (Intermediate, Uncoded 01/16/23 08:18) SWELLING DUST MITES Allergy (Intermediate, Uncoded 01/16/23 08:18) HIVES Shellfish Allergy (Unknown, Uncoded 01/16/23 08:18) anaphylaxis [facility] Medical History (Updated 02/16/23 @ 13:33 by Tamar Lockhart) Migraines Morbid obesity Asthma Surgical History (Updated 01/11/23 @ 15:27 by ROBERTO Goff) Sprain of ligament of right ankle Family History (Updated 01/11/23 @ 15:30 by ROBERTO Goff) Mother High blood pressure Arthritis Hypothyroid Colon polyp Migraine Father No problems noted. 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 He denied any history of any mental health treatment or issues. Pt has no alcohol or drug abuse history. Also denied a history of trauma or abuse. Pt stated that he recently reached his breaking point when he could not get on any rides at [employer]. Presenting Concerns Referral Source provider Reason for referral weight loss surgery evaluation Precipitating Event obesity Living Situation Current Living Situation Own At risk of losing current housing? No Satisfied with current living situation? Yes Comments Pt lives with his . Food/Weight/Diet Expectations of change weight loss and maintenance History/Relationship with food He stated that he is a big coffee drinker, 4-5 cups a day with cream and splenda, rice, beans, air fried chicken, no vegetables, burgers, then skip meals, 9pm large meal with rice or mashed potatoes. No binge eating in about two years since he left a stressful job. History/Relationship with weight He stated that he has struggled with his weight on and off since 2014 (gained over 100lbs after the ). Pt stated that he has struggled to keep weight off. History/Relationship with dieting several diets, keto, high protein, low fat, low carb, no sugar diets, fasting, will loose 15 lbs and then gain it back a couple of weeks later on the same diet, pills, workout routines Binge Eating Do you frequently eat large amounts of food in short periods of time, not feeling physically hungry? No Do you feel out of control when you eat a large amount of food in a short period of time? No Do you eat large amounts of food rapidly and typically alone? No Night Eating Do you wake up at least once during the night to eat? No If you wake up in the night, do you find that it is necessary to eat something in order to fall back asleep? No Do you have little or no appetite in the morning and feel very hungry in the evening, often overeating between dinner and when you go to bed? No Social History Family history and relationship Pt is to his for 14 years. He was [place] in [place] and came here at 5 months old, raised by his parents and has 7 siblings. His mom lives close by and his father left his mother when patient was 15 years old started a new family. 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 none Education Preferred learning style Auditory, Verbal, Written, Learn by doing and Visual Currently enrolled in educational program? No Interested in further educational program? 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 Yes Mental Health and Addiction Treatment Current/Past substance abuse? No Current/Past addictive behavior concerns? No Medical and Physical Health Summary Physical exam in the last year? Yes Pain Screening Current pain? No Pain in the last few months? No Medications Is the patient compliant with medications? Yes Does the patient have Dave Guardian in place? Not applicable Does the patient use complimentary health approaches? No Trauma/Abuse History History of trauma? No Questionnaires PHQ-9 Over the last 2 weeks, how often have you been bothered by any of the following problems? 1. Little interest or pleasure in doing things: several days 2. Feeling down, depressed, or hopeless: several days 3. Trouble falling or staying asleep, or sleeping too much: not at all 4. Feeling tired or having little energy: several days 5. Poor appetite or overeating: several days 6. Feeling bad about yourself - or that you are a failure or have let yourself or your family down: several days 7. Trouble concentrating on things, such as reading the newspaper or watching television: not at all 8. Moving or speaking so slowly that other people could have noticed. Or the opposite - being so fidgety or restless that you have been moving around a lot more than usual: not at all 9. Thoughts that you would be better off or of hurting yourself in some way: not at all Total score: 5 Source: Developed by Drs. Antony Malone, Leni Wheeler, Clive Antonio and colleagues, with an educational carlee from [employer]. Binge Eating Scale Group 1 A. I don't feel self-conscious about my wt. or body size when I'm with others. B. I feel concerned about how I look to others, but it normally does not make me fell disappointed with myself C. I do get self-conscious about my appearance and wt. which makes me feel disappointed in myself. D. I feel very self-conscious about my wt. and frequently I feel intense shame and disgust for myself. I try to avoid social contacts because of my self-consciousness. Response Group 1: C Group 2 A. I don't have any difficulty eating slowly in the proper manner. B. Although I seem to gobble down foods, I don't end up feeling stuffed because of eating to much. C. At times, I tend to eat quickly and then, I feel uncomfortably full afterwards. D. I have the habit of bolting down my food, without really chewing it. When this happens I usually feel uncomfortably stuffed because I've eaten to much. Response Group 2: C Group 3 A. I feel capable to control my eating urges when I want to. B. I feel like I have failed to control my eating more than the average person. C. I feel utterly helpless when it comes to feeling in control of my eating urges. D. Because I feel so helpless about controlling my eating I have become very desperate about trying to get control. Response Group 3: A Group 4 A. I don't have the habit of eating when I'm bored. B. I sometimes eat when I'm bored, but often I'm able to get busy and get my mind off food. C. I have a regular habit of eating when I'm bored, but occasionally, I can use some other activity to get my mind off eating. D. I have a strong habit of eating when I'm bored. Nothing seems to help me breath the habit. Response Group 4: A Group 5 A. I'm usually physically hungry when I eat something. B. Occasionally, I eat something on impulse even though I really am not hungry. C. I have the regular habit of eating foods, that I might not really enjoy, to satisfy a hungry feeling even though physically, I don't need the food. D. Although I'm not physically hungry, I get a hungry feeling in my mouth that only seems to be satisfied when I eat a food, like sandwich, that fills my mouth. Sometimes, when I eat the food to satisfy my mouth hunger, I then spit the food out so I won't gain weight. Response Group 5: B Group 6 A. I don't feel any guilt or self-hate after I overeat. B. After I overeat, occasionally I feel guilt or self-hate. C. Almost all the time I experience strong guilt or self-hate after I overeat. Response Group 6: A Group 7 A. I don't lose total control of my eating when dieting even after periods when I overeat. B. Sometimes when I eat a forbidden food on a diet, I feel like I blew it and eat even more. C. Frequently, I have the habit of saying to myself, I've blown it now, why not go all the way, when I overeat on a diet. When that happens I eat more. D. I have a regular habit of starting a strict diets for myself but I break the diets by going on an eating binge. My life seems to be either a feast or famine. Response Group 7: A Group 8 A. I rarely eat so much food that I feel uncomfortably stuffed afterwards. B. Usually about once a month, I each such a quantity of food, I end up feeling very stuffed. C. I have regular periods during the month when I eat large amounts of food, either at mealtime or at snacks. D. I eat so much food that I regularly feel quite uncomfortable after eating and sometimes a bit nauseous. Response Group 8: A Group 9 A. My level of calorie intake does not go up very high or go down very low on a regular basis. B. Sometimes after I overeat, I will try to reduce my caloric intake to almost nothing to compensate for the excess calories I've eaten. C. I have a regular habit of overeating during the night. It seems that my routine is not to be hungry in the morning but overeat in the evening. D. In my adult years, I have had week-long periods where I practically starve myself. This follows periods when I overeat. It seems I live a life of either feast or famine. Response Group 9: A Group 10 A. I usually am able to stop eating when I want to. I know when enough is enough. B. Every so often, I experience a compulsion to eat which I can't seem to control. C. Frequently, I experience strong urges to eat which I seem unable to control, but at other times I can control my eating urges. D. I feel incapable of controlling urges to eat. I have a fear of not being able to stop eating voluntarily. Response Group 10: B Group 11 A. I don't have any problem stopping eating when I feel full. B. I usually can stop eating when I feel full but occasionally overeat leaving me feeling uncomfortably stuffed. C. I have a problem stopping eating once I start and usually I feel uncomfortably stuffed after I eat a meal. D. Because I have a problem not being able to stop eating when I want, I sometimes have to induce vomiting to relieve my stuffed feeling. Response Group 11: A Group 12 A. I seem to eat just as much when I'm with others, Family social gatherings as when I'm by myself. B. Sometimes, when I'm with other persons, I don't eat as much as I want to eat because I'm self-conscious about my eating. C. Frequently, I eat only a small amount of food when others are present, because I'm very embarrassed about my eating. D. I feel so ashamed about overeating that I pick times to overeat when I know no one will see me. I feel like a closet eater. Response Group 12: A Group 13 A. I eat three meals a day with only an occasional between meal snack. B. I eat 3 meals a day, but I also normally snack between meals. C. When I am snacking heavily, I get in the habit of skipping regular meals. D. There are regular periods when I seem to be continually eating, with no planned meals. Response Group 13: D Group 14 A. I don't think much about trying to control unwanted eating urges. B. At least some of the time, I feel my thoughts are pre-occupied with trying to control my eating urges. C. I feel that frequently I spend much time thinking about how much I ate or about trying not to eat anymore. D. It seems to me that most of my waking hours are pre-occupied by thoughts about eating or not eating. I feel like I'm constantly struggling not to eat. Response Group 14: A Group 15 A. I don't think about food a great deal. B. I have strong craving for food but they last only for brief periods of time. C. I have days when I can't seem to think about anything else but food. D. Most of my days seem to be pre-occupied with thoughts about food. I feel like I live to eat. Response Group 15: A Group 16 A. I usually know whether or not I'm physically hungry. I take the right portion of food to satisfy me. B. Occasionally, I feel uncertain about knowing whether or not I'm physically hungry. A these times it's hard to know how much food I should take to satisfy me. C. Even though I might know how many calories I should eat, I don't have any idea what is a normal amount of food for me. Response Group 16: B Binge Eating Score: 10 Score less than 17 Minimal Risk Score between 18-26 Moderate Risk Score between 27-46 High Risk Assessment & Plan Assessment & Plan (1) Adjustment disorder, unspecified: Code(s): F43.20 - Adjustment disorder, unspecified (2) Morbid obesity: Code(s): E66.01 - Morbid (severe) obesity due to excess calories Plan Patient has no mental health history or presents with any sig barriers. He reported struggling with his weight and some anxiety due to feeling helpless when he regains during diets. He struggles to find clothes to wear and it takes a toll in him. He is cleared for surgery when ready. Telehealth Telehealth Location of provider rendering services: other Location of patient: address on file Patient Identification confirmed using: Name, : Yes Telehealth method: video Patient verbally consented to treatment: Yes Patient verbally consented to billing insurance company: Yes Patient informed of any privacy concerns related to visit: Yes Minutes spent on Phone/Video with Pt.: 45 Coding Level of Care Code Tele Psy Diag Eval (45014) Diagnoses Adjustment disorder, unspecified F43.20 Morbid obesity E66.01 Time Spent (min) 45
== END 2023-02-16 13:37 | disposition home or self-care (01) ==
LOC: HO.HBST 13:29
PROVIDERS: PCP Internal Medicine Geriatric Medicine; Visit Provider Counselor Mental Health
DX: F43.20 Adjustment disorder, unspecified (principal); E66.01 Morbid (severe) obesity due to excess calories
CPT/HCPCS: 90791

== ENCOUNTER → 2023-02-20 13:21 | Outpatient (BNVA) | payer MEDICAID, SELFPAY | PROVIDERS: PCP Internal Medicine Geriatric Medicine; Visit Provider Dietitian, Registered | DX: E66.01 Morbid (severe) obesity due to excess calories (principal) | CPT/HCPCS: 97802 ==

== ENCOUNTER 2023-03-10 08:05 | Outpatient (AMB) | payer MEDICAID, SELFPAY ==
--- NOTE | 2023-03-10 08:11 | A.OFFVIS_ITS ---
Intake VS Expanded 03/10/23 08:22 Height 5 ft 8 in Weight 280 lb 4 oz BMI 42.6 Body Fat % 41.4 Body Fat Mass 116 Fat Free Mass 164.3 Visceral Fat Rating 18 Body Water % 41.8 Body Water Mass 117.2 Basal Metabolic Rate/Score 2,336 Intake Visit Reasons: TV Follow Up SWL Allergies shellfish derived Allergy (Severe, Verified 01/16/23 08:18) ANAPHYLAXIS ibuprofen [IBUPROFEN] Allergy (Intermediate, Verified 01/16/23 08:18) ANGIOEDEA, HIVES DAIRY PRODUCTS Allergy (Intermediate, Uncoded 01/16/23 08:18) SWELLING DUST MITES Allergy (Intermediate, Uncoded 01/16/23 08:18) HIVES Shellfish Allergy (Unknown, Uncoded 01/16/23 08:18) anaphylaxis HPI TV Follow Up SWL HPI0 Details Start time: 8.07am, End time: 8.27am ?I spent 15 minutes speaking with the patient on the phone plus an additional 5 minutes reviewing and updating records for a total of 20 minutes HPI Comments History of Present Illness0 Details Overall weight loss: 20.2 lbs, or 6.72% TBWL Is doing 2 Celebrate Rebuild protein shakes (2 scoops each in 8oz almond milk), 2 Zone Perfect protein bars and one meal (12 forks of protein and 12 forks of salad or vegetables) Exercise: is doing Elliptical x4/week for 350-380 calories and treadmill x4/wk for 350 calories PFSH Medical History (Updated 02/16/23 @ 13:33 by Tamar Lockhart) Migraines Morbid obesity Asthma Surgical History (Updated 01/11/23 @ 15:27 by ROBERTO Goff) Sprain of ligament of right ankle Family History (Updated 01/11/23 @ 15:30 by ROBERTO Goff) Mother High blood pressure Arthritis Hypothyroid Colon polyp Migraine Father No problems noted. 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 Change nutritional plan to one Celebrate Rebuild shake with ONE scoop in 8oz almond milk, one Celebrate Rebuild protein shakes (2 scoops in 8oz almond milk), 2 Zone Perfect protein bars and one meal (12 forks of protein and 12 forks of salad or vegetables) 2. Exercise: continue Elliptical x4/week for 350-380 calories and treadmill x4/wk for 350 calories 3. Continue to send weight measurements weekly on Fridays Telehealth Telehealth Location of provider rendering services: practice address Location of patient: address on file Patient Identification confirmed using: Name, : Yes Telehealth method: voice only Patient verbally consented to treatment: Yes Patient verbally consented to billing insurance company: Yes Patient informed of any privacy concerns related to visit: Yes Minutes spent on Phone/Video with Pt.: 20 Coding Level of Care Code Tele Est Pt Level 3 (60328) Diagnoses Morbid obesity E66.01 Time Spent (min) 20
[2023-03-10 08:22] VITALS: BMI 42.6
== END 2023-03-10 08:27 | disposition home or self-care (01) ==
LOC: HO.HBS 08:05
PROVIDERS: PCP Internal Medicine Geriatric Medicine; Visit Provider Surgery
DX: E66.01 Morbid (severe) obesity due to excess calories (principal); Z68.41 Body mass index [BMI] 40.0-44.9, adult
CPT/HCPCS: 99213

== ENCOUNTER → 2023-03-10 08:05 | Outpatient (BNVA) | payer MEDICAID, SELFPAY | PROVIDERS: PCP Internal Medicine Geriatric Medicine; Visit Provider Surgery ==

== ENCOUNTER 2023-04-07 08:07 | Outpatient (AMB) | payer MEDICAID, SELFPAY ==
--- NOTE | 2023-04-07 07:59 | MHC.OFFVISWM ---
Intake Intake Visit Reasons: TV Follow Up SWL Allergies shellfish derived Allergy (Severe, Verified 01/16/23 08:18) ANAPHYLAXIS ibuprofen [IBUPROFEN] Allergy (Intermediate, Verified 01/16/23 08:18) ANGIOEDEA, HIVES DAIRY PRODUCTS Allergy (Intermediate, Uncoded 01/16/23 08:18) SWELLING DUST MITES Allergy (Intermediate, Uncoded 01/16/23 08:18) HIVES Shellfish Allergy (Unknown, Uncoded 01/16/23 08:18) anaphylaxis HPI TV Follow Up SWL HPI Details Start time: 7.55am, End time: 8.15am ?I spent 15 minutes speaking with the patient on the phone plus an additional 5 minutes reviewing and updating records for a total of 20 minutes HPI Comments History of Present Illness Details Overall weight loss: 19.2lbs, or 6.39% TBWL Is doing 2 Celebrate Rebuild shakes with 3 scoops each in 8oz almond milk, 2 Zone Perfect protein bars and one meal (12 forks of meat and 12 forks of salad or vegetables) Exercise: could not do this time because she had surgery and dealing with complications 1. Change nutritional plan to one Celebrate Rebuild shake with ONE scoop in 8oz almond milk, one Celebrate Rebuild protein shakes (2 scoops in 8oz almond milk), 2 Zone Perfect protein bars and one meal (12 forks of protein and 12 forks of salad or vegetables) 2. Exercise: continue Elliptical x4/week for 350-380 calories and treadmill x4/wk for 350 calories 3. Continue to send weight measurements weekly on Fridays [facility] Medical History (Updated 02/16/23 @ 13:33 by Tamar Lockhart) Migraines Morbid obesity Asthma Surgical History (Updated 01/11/23 @ 15:27 by ROBERTO Goff) Sprain of ligament of right ankle Family History (Updated 01/11/23 @ 15:30 by ROBERTO Goff) Mother High blood pressure Arthritis Hypothyroid Colon polyp Migraine Father No problems noted. 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 Change nutritional plan to one Celebrate Rebuild shake with ONE scoop in 8oz almond milk, one Celebrate Rebuild protein shakes (2 scoops in 8oz almond milk), 2 Zone Perfect protein bars and one meal (12 forks of protein and 12 forks of salad or vegetables) 2. Exercise: continue Elliptical x4/week for 350-380 calories and treadmill x4/wk for 350 calories 3. Continue to send weight measurements weekly on Fridays Telehealth Telehealth Location of provider rendering services: practice address Location of patient: address on file Patient Identification confirmed using: Name, : Yes Telehealth method: voice only Patient verbally consented to treatment: Yes Patient verbally consented to billing insurance company: Yes Patient informed of any privacy concerns related to visit: Yes Minutes spent on Phone/Video with Pt.: 20 Coding Level of Care Code Tele Est Pt Level 3 (66039) Diagnoses Morbid obesity E66.01 Time Spent (min) 20
== END 2023-04-07 08:16 | disposition home or self-care (01) ==
LOC: HO.HBS 08:07
PROVIDERS: PCP Internal Medicine Geriatric Medicine; Visit Provider Surgery
DX: E66.01 Morbid (severe) obesity due to excess calories (principal); Z68.41 Body mass index [BMI] 40.0-44.9, adult
CPT/HCPCS: 99213

== ENCOUNTER → 2023-04-07 08:07 | Outpatient (BNVA) | payer MEDICAID, SELFPAY | PROVIDERS: PCP Internal Medicine Geriatric Medicine; Visit Provider Surgery ==

== ENCOUNTER 2023-05-12 08:02 | Outpatient (AMB) | payer MEDICAID, SELFPAY ==
--- NOTE | 2023-05-12 08:10 | A.OFFVIS_ITS ---
Intake VS Expanded 05/12/23 08:33 Height 5 ft 8 in Weight 279 lb 4 oz BMI 42.5 Body Fat % 41.3 Body Fat Mass 115.3 Fat Free Mass 164 Visceral Fat Rating 18 Body Water % 41.9 Body Water Mass 117 Basal Metabolic Rate/Score 2,328 Intake Visit Reasons: TV Follow Up SWL Allergies shellfish derived Allergy (Severe, Verified 01/16/23 08:18) ANAPHYLAXIS ibuprofen [IBUPROFEN] Allergy (Intermediate, Verified 01/16/23 08:18) ANGIOEDEA, HIVES DAIRY PRODUCTS Allergy (Intermediate, Uncoded 01/16/23 08:18) SWELLING DUST MITES Allergy (Intermediate, Uncoded 01/16/23 08:18) HIVES Shellfish Allergy (Unknown, Uncoded 01/16/23 08:18) anaphylaxis HPI TV Follow Up SWL HPI Details Start time: 8.00am, End time: 8.25am ?I spent 20 minutes speaking with the patient on the phone plus an additional 5 minutes reviewing and updating records for a total of 25 minutes HPI Comments History of Present Illness Details Overall weight loss: 21.2 lbs, or 7.05% TBWL Is doing one Celebrate Rebuild (1 scoop in almond milk), another Celebrate Rebuild shake (2 scoops in almond milk), 2 Zone Perfect protein bars and one meal (12 forks of protein and 12 forks of salad or vegetables) Exercise: is doing treadmill x4/wk for 350 calories (incline and one day the Elliptical for 600 calories PFSH Medical History (Updated 02/16/23 @ 13:33 by Tamar Lockhart) Migraines Morbid obesity Asthma Surgical History (Updated 01/11/23 @ 15:27 by ROBERTO Goff) Sprain of ligament of right ankle Family History (Updated 01/11/23 @ 15:30 by ROBERTO Goff) Mother High blood pressure Arthritis Hypothyroid Colon polyp Migraine Father No problems noted. 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 Plan for lap sleeve gastrectomy including upper GI endoscopy. All tests has been completed and reviewed and the patient is cleared for the surgery. ?If diaphragmatic or ventral hernias are present at time of surgery, these will be repaired laparoscopically as well. Risks and complications were discussed in detail including possible conversion to an open procedure, anastomotic leak, bleeding requiring transfusion, small bowel obstruction, , DVT and pulmonary embolism, cardiac, or pulmonary complications, as bookkeeping machine mechanic complications such as anastomotic ulcer, insufficient weight loss and vitamin deficiencies. I emphasized the importance of close follow-up, adherence to instructions and good communication. So far he has proven to be an excellent communicator and very compliant with all our directions accomplishing a great weight loss. I believe that he is an excellent candidate and he is ready. 2. Continue same nutritional plan of one Celebrate Rebuild (1 scoop in almond milk), another Celebrate Rebuild shake (2 scoops in almond milk), 2 Zone Perfect protein bars and one meal (12 forks of protein and 12 forks of salad or vegetables) 3. Exercise: change treadmill to daily for 300 calories at a continuous speed of 4.0 mph and incline of 4.0. 4. Continue to send me weight measurements weekly on Fridays Telehealth Telehealth Location of provider rendering services: practice address Location of patient: address on file Patient Identification confirmed using: Name, : Yes Telehealth method: voice only Patient verbally consented to treatment: Yes Patient verbally consented to billing insurance company: Yes Patient informed of any privacy concerns related to visit: Yes Minutes spent on Phone/Video with Pt.: 25 Coding Level of Care Code Tele Est Pt Level 4 (84685) Diagnoses Morbid obesity E66.01 Time Spent (min) 25
[2023-05-12 08:33] VITALS: BMI 42.5
== END 2023-05-12 08:35 | disposition home or self-care (01) ==
LOC: HO.HBS 08:02
PROVIDERS: PCP Internal Medicine Geriatric Medicine; Visit Provider Surgery
DX: E66.01 Morbid (severe) obesity due to excess calories (principal); Z68.41 Body mass index [BMI] 40.0-44.9, adult
CPT/HCPCS: 99214

== ENCOUNTER → 2023-05-12 08:02 | Outpatient (BNVA) | payer MEDICAID, SELFPAY | PROVIDERS: PCP Internal Medicine Geriatric Medicine; Visit Provider Surgery ==

== ENCOUNTER 2023-05-17 08:38 | Outpatient (REF) | payer MEDICAID, SELFPAY ==
--- NOTE | ~2023-05-17 | FL_ITS ---
EXAMINATION: XR FLUOROSCOPY UPPER GI WITH AIR CLINICAL INFORMATION: Preop evaluation prior to bariatric surgery COMPARISON: None TECHNIQUE: Fluoroscopic air contrast upper GI examination was performed utilizing standard techniques with thin and thick barium and effervescent granules. Numerous spot images were obtained. FINDINGS: Dual and single contrast images of the esophagus demonstrate normal caliber, contour, and mucosal pattern. No evidence of stricture, mass, or ulcerations identified. Esophageal peristalsis was normal. A small type I hiatal hernia is present. No significant gastroesophageal reflux was seen during the course of the examination and on reflux views. Dual contrast and single contrast images of the stomach demonstrated a normal contour. Multiple tiny polyps are seen throughout the stomach. No evidence of mass. Contrast freely passed into the gastric antrum and duodenal bulb without delay. Single and air-contrast images of the duodenal bulb demonstrate no abnormality. The duodenal sweep has a normal appearance, course, and mucosal fold appearance. The imaged proximal jejunum has a normal fold pattern and caliber. FLUOROSCOPY TIME: 2 minutes 58 Number of Spot Images: 10 Number of Cine: 7 DOSE AREA PRODUCT: [id number] uGy-m2 (microgray-meter squared) FL/FL upper GI w air IMPRESSION: 1. Small type I hiatal hernia 2. Multiple small polyps are seen throughout the stomach, likely hyperplastic, however cannot exclude other etiologies. Recommend correlation with EGD. This procedure was performed by Adelfo Fernando PA-C, and supervised by Dr. Lemus
== END 2023-05-17 08:39 | disposition home or self-care (01) ==
LOC: HO.XRAY 08:38
PROVIDERS: PCP Internal Medicine Geriatric Medicine; Visit Provider Surgery
DX: E66.01 Morbid (severe) obesity due to excess calories (principal); N46.9 Male infertility, unspecified; G43.909 Migraine, unspecified, not intractable, without status migrainosus
CPT/HCPCS: 74246

== ENCOUNTER → 2023-05-17 08:39 | Outpatient (BNV) | payer MEDICAID, SELFPAY | PROVIDERS: PCP Internal Medicine Geriatric Medicine; Visit Provider Radiology Diagnostic Radiology | DX: Z01.818 Encounter for other preprocedural examination (principal) | CPT/HCPCS: 74246 ==

== ENCOUNTER 2023-06-30 08:18 | Outpatient (AMB) | payer MEDICAID, SELFPAY ==
--- NOTE | 2023-06-30 11:39 | MHC.OFFVISWM ---
Intake VS Expanded 06/30/23 11:48 Height 5 ft 8 in Weight 280 lb 4 oz BMI 42.6 Body Fat % 41.3 Body Fat Mass 115.8 Fat Free Mass 164.5 Visceral Fat Rating 18 Body Water % 41.9 Body Water Mass 117.4 Basal Metabolic Rate/Score 2,336 Intake Visit Reasons: TV Pre Op LSG 07/13/23 Allergies shellfish derived Allergy (Severe, Verified 06/30/23 11:40) ANAPHYLAXIS ibuprofen [IBUPROFEN] Allergy (Intermediate, Verified 06/30/23 11:40) ANGIOEDEA, HIVES DAIRY PRODUCTS Allergy (Intermediate, Uncoded 06/30/23 11:40) SWELLING DUST MITES Allergy (Intermediate, Uncoded 06/30/23 11:40) HIVES Shellfish Allergy (Unknown, Uncoded 06/30/23 11:40) anaphylaxis Medication List - Last Reconciled 06/30/23 by Dewey Gomes MD acetaminophen (Tylenol Extra Strength) 500 mg PO Q6H PRN 30 days ondansetron 4 mg PO Q12H pantoprazole 40 mg PO DAILY polyethylene glycol 3350 (Miralax) 17 grams PO DAILY sucralfate 10 mL PO BID HPI TV Pre Op LSG 07/13/23 HPI Details Start time: 11.32am, End time: 11.57am ?I spent 20 minutes speaking with the patient on the phone plus an additional 5 minutes reviewing and updating records for a total of 25 minutes HPI Comments History of Present Illness Details Overall weight loss: 20.2lbs, or 6.72% TBWL Is doing 2 Celebrate Rebuild protein shakes (1 scoop in 8oz almond milk), 2 Zone Perfect protein bars and one meal (10 forks of protein and 10 forks Exercise: is doing treadmill for 600 calories 3 days per week PFSH Medical History (Updated 02/16/23 @ 13:33 by Tamar Lockhart) Migraines Morbid obesity Asthma Surgical History (Updated 01/11/23 @ 15:27 by ROBERTO Goff) Sprain of ligament of right ankle Family History (Updated 01/11/23 @ 15:30 by ROBERTO Goff) Mother High blood pressure Arthritis Hypothyroid Colon polyp Migraine Father No problems noted. 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 Plan for lap sleeve gastrectomy including upper GI endoscopy. All tests has been completed and reviewed and the patient is cleared for the surgery. ?If diaphragmatic or ventral hernias are present at time of surgery, these will be repaired laparoscopically as well. Risks and complications were discussed in detail including possible conversion to an open procedure, anastomotic leak, bleeding requiring transfusion, small bowel obstruction, , DVT and pulmonary embolism, cardiac, or pulmonary complications, as assisted complications such as anastomotic ulcer, insufficient weight loss and vitamin deficiencies. I emphasized the importance of close follow-up, adherence to instructions and good communication. So far he has proven to be an excellent communicator and very compliant with all our directions accomplishing a great weight loss. I believe that he is an excellent candidate and he is ready. 2. Preop prescriptions were provided and explained the purpose of each one. Need to be purchased preop. Start Pantoprazole now as you get it from the pharmacy, 1 pill per day. Sucralfate and Zofran are for after surgery as needed. 3. Bowel prep: please do 7 packets ?of Miralax mixing each one with a an 8oz glass of water, crystal light, gatorade zero, or propel ?on 07/10/23 and the same amount on 07/11/23. The Miralax you begin with one packet at a time in 8oz water or crystal light, gatorade zero, or propel ?as early in the day as you can and you do them back to back until you finish them. Continue the protein shakes during? the bowel prep. 4. Needs to purchase 1oz medicine cups . 5. Needs to purchase Children's liquid Tylenol for postop pain control. 6. Avoid aspirin, motrin, Advil, Aleve, Ibuprofen, Naproxyn. Tylenol is OK. 7. He needs to purchase the Celebrate 4:1 protein shakes from the [facility]. 8. Will do basic preop blood work-up any day between Monday07/03/23 and Monday07/07/23 fasting for 12 hours and is scheduled to see the Anesthesiologist prior to the day of surgery. 9. Importance of adherence to postop folllow-up and recommendations was underscored and he understands that. 10. Stop food and bars as of tomorrow 07/01/23 and continue with 3 Celebrate Rebuild protein shakes (ONE scoop EACH in 8oz almond milk) at 8am-10am, 11am-1pm and 2pm-4pm and THREE more Celebrate Rebuild protein shakes with TWO scoops EACH in 8oz of almond milk at 5pm-7pm, 8pm-10pm and 10pm-12am 11. No soups, broths or V8 12. The patient's?medical?history has been reviewed and they are considered low risk for post op DVT and therefore DVT prophylaxis is not considered necessary. Travel after surgery was reviewed. The patient has not disclosed any travel plans during the first 30 days after surgery and they have been advised that within the first 30 days after surgery any bus, plane, train or car travel over 2 hours in duration is contraindicated due to the possibility of developing blood clots from immobility. Any travel, needs to include periods of ambulation of 10 minutes in duration every 2 hours.? Patient was instructed to discuss any plans for travel during this period with their bariatric surgeon.? 13. Please take at the day of surgery the following medications: NONE 14. Absolutely no smoking or vaping, or marijuana until the surgery and for at least the first 4 weeks. Only nicotine patches are allowed. 15. Send me weight measurements tomorrow 07/01/23, Monday07/08/23 and then on Monday07/12/23 the day of surgery before you go to the hospital. 16. Avoid any steroids by mouth for any reason. Let me know if someone prescribes them to you 17. These instructions supersede anything else you read in the handbook, anything you watched in videos or classes or you were told by any other provider. If there is any conflict, you follow the above instructions and nothing else. Orders: Orders Comprehensive Met. Panel Today E66.01 - Morbid (severe) obesity due to excess calories TSH reflex Free T4 Today E66.01 - Morbid (severe) obesity due to excess calories Prothrombin Time INR Today E66.01 - Morbid (severe) obesity due to excess calories Partial Thromboplastin Time Today E66.01 - Morbid (severe) obesity due to excess calories Lipid Panel Today E66.01 - Morbid (severe) obesity due to excess calories Insulin Today E66.01 - Morbid (severe) obesity due to excess calories Type and Screen Today E66.01 - Morbid (severe) obesity due to excess calories C Reactive Protein Today E66.01 - Morbid (severe) obesity due to excess calories Hemoglobin A1c Today E66.01 - Morbid (severe) obesity due to excess calories Complete Blood Count Auto Diff Today E66.01 - Morbid (severe) obesity due to excess calories Medications: New ondansetron Only take one every 12 hours as needed if you have nausea 4 mg PO Q12H 20 tabs 0RF nausea and vomiting R11.0 - Nausea pantoprazole 40 mg PO DAILY 90 tabs 0RF K21.9 - Gastro-esophageal reflux disease without esophagitis sucralfate 10 mL PO BID 600 mL 2RF K21.9 - Gastro-esophageal reflux disease without esophagitis polyethylene glycol 3350 (Miralax) Mix each packet with 8oz of water, Crystal light, or Gatorade zero, or Propel and do 7 packets on 07/10/23 and another 7 packets on 24 17 grams PO DAILY 14 ea 0RF Z01.818 - Encounter for other preprocedural examination Telehealth Telehealth Location of provider rendering services: practice address Location of patient: address on file Patient Identification confirmed using: Name, : Yes Telehealth method: voice only Patient verbally consented to treatment: Yes Patient verbally consented to billing insurance company: Yes Patient informed of any privacy concerns related to visit: Yes Minutes spent on Phone/Video with Pt.: 25 Coding Level of Care Code Tele Est Pt Level 3 (21360) Diagnoses Morbid obesity E66.01 Time Spent (min) 25
[2023-06-30 11:48] VITALS: BMI 42.6
== END 2023-06-30 11:58 | disposition home or self-care (01) ==
LOC: HO.HBS 08:19
PROVIDERS: PCP Internal Medicine Geriatric Medicine; Visit Provider Surgery
DX: E66.01 Morbid (severe) obesity due to excess calories (principal); Z68.41 Body mass index [BMI] 40.0-44.9, adult
CPT/HCPCS: 99024

== ENCOUNTER → 2023-06-30 08:18 | Outpatient (BNVA) | payer MEDICAID, SELFPAY | PROVIDERS: PCP Internal Medicine Geriatric Medicine; Visit Provider Surgery | DX: E66.01 Morbid (severe) obesity due to excess calories (principal); Z68.41 Body mass index [BMI] 40.0-44.9, adult | CPT/HCPCS: 99212 ==